=== PATIENT | female | born 1970 ===

== ENCOUNTER → 2021-09-08 | Outpatient (REF) | LOC: M EMP 10:24 | PROVIDERS: ATTEND Family Medicine | DX: Z20.822 Contact with and (suspected) exposure to COVID-19 (principal) ==

== ENCOUNTER → 2021-09-09 | Outpatient (REF) ==
[2021-09-09 21:58] LABS: RSV AMPLIFICATION NEGATIVE (NEGATIVE)
== END ==
LOC: M EMP 20:52
DX: Z20.822 Contact with and (suspected) exposure to COVID-19 (principal)